=== PATIENT | male | born 1945 | race Caucasian/White ===

== ENCOUNTER 2019-10-26 18:34 | Emergency (ER) | payer MEDICARE, BC ==
[2019-10-26] MEDS: Lidocaine 1% 30 ML SDV INJECT ONE (18:57)
[2019-10-26] MEDS: Diphtheria,Pertussis(Acell),Tetanus Vaccine 0.5 ML Syringe IM ONE (19:25)
--- NOTE | 2019-10-26 19:26 | EDM.PDOC ---
ED HPI GENERAL MEDICAL PROBLEM - General Chief Complaint: Laceration Stated Complaint: CUT THUMB WITH SAW Time Seen by Provider: 10/26/19 19:02 Source of Information: Reports: Patient History Limitations: Reports: No Limitations - History of Present Illness INITIAL COMMENTS - FREE TEXT/NARRATIVE: The patient comes to the ED with complaints of injury to the left thumb. 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 Unsure of when his last tetanus shot was. No other injuries no change in sensation. Left Finger-Thumb Pain Score (Numeric/FACES): 4 - Related Data Allergies Allergy/AdvReac Type Severity Reaction Status Date / Time No Known Allergies Allergy Verified 10/26/19 18:44 Home Meds: Home Meds Diclofenac Sodium [Voltaren] 75 mg PO BIDMEALS 10/26/19 [History] Simvastatin [Zocor] 20 mg PO BEDTIME 10/26/19 [History] Past Medical History Cardiovascular History: Reports: High Cholesterol Musculoskeletal History: Reports: Arthritis Social & Family History - Tobacco Use Smoking Status *Q: Never Smoker ED ROS GENERAL - Review of Systems Review Of Systems: Comprehensive ROS is negative, except as noted in HPI. ED EXAM, SKIN/RASH Exam: See Below Exam Limited By: No Limitations General Appearance: Alert, WD/WN, No Apparent Distress Respiratory/Chest: No Respiratory Distress Cardiovascular: Normal Peripheral Pulses, Regular Rate, Rhythm Peripheral Pulses: 1+: Radial (L), Radial (R) Extremities: No: Normal Inspection (ON the very distal tip of the left thumb the patient has a transverse jagged laceration into the subcutaneous tissue. with some devascularized tissue as well. Does not extend into the nail or the matrix. It is aprox 2cm in length. The patient is able to flex and extend at the IP joint and the MCP joint. CMS intact appropriately. ) Neurological: Alert, Oriented, Normal Cognition, Normal Reflexes Skin: Warm, Dry, Intact Lymphatic: No Adenopathy ED SKIN PROCEDURES - Laceration/Wound Repair Left Distal Digit - 1st (Thumb) Appearance: Subcutaneous, Irregular, Clean Distal NVT: Neuro & Vascular Intact Anesthetic Type: Local Local Anesthesia - Lidocaine (Xylocaine): 1% Plain Local Anesthetic Volume: 4cc Skin Prep: Chlorhexidine (Hibiciens) Exploration/Debridement/Repair: Wound Explored, In a Bloodless Field, Explored to Base, No Foreign Material Found, Multiple Flaps Aligned Closed with: Sutures Lac/Wound length In cm: 2 Suture Size: 4-0 Suture Type: Nylon # of Sutures: 5 Sterile Dressing Applied: Nurse Tetanus Status Addressed: Yes Complications: No Course - Vital Signs Last Recorded V/S: Last Vital Signs Temp 37.3 C 10/26/19 18:35 Pulse 75 10/26/19 18:35 Resp 16 10/26/19 18:35 BP 177/103 H 10/26/19 18:35 Pulse Ox 100 10/26/19 18:35 - Orders/Labs/Meds Orders: Active Orders 24 hr Category Date Time Status Vaccines to be Administered [RC] PER UNIT ROUTINE Care 10/26/19 19:01 Active Meds: Medications Discontinued Medications Generic Name Dose Route Start Last Admin Trade Name Freq PRN Reason Stop Dose Admin Diphtheria/Tetanus/Acell Pertussis 0.5 ml 10/26/19 19:01 Adacel IM 10/26/19 19:02 .ONCE ONE Lidocaine HCl 30 ml 10/26/19 18:44 10/26/19 18:57 Xylocaine-Mpf 1% INJECT 10/26/19 18:45 30 ml ONETIME ONE Administration - Re-Assessments/Exams Free Text/Narrative Re-Assessment/Exam: 10/26/19 19:30 The hand was cleanse with chlorhexidine and soaked. Tdap updated. Well approximated the finger except for the medial aspect where a bit of tissue was avulsed aprox 90% was well approximated. Departure - Departure Time of Disposition: 19:22 Disposition: Home, Self-Care 01 Clinical Impression: Laceration of thumb Qualifiers: Encounter type: initial encounter Damage to nail status: without damage Foreign body presence: without foreign body Laterality: left Qualified Code(s): S61.012A - Laceration without foreign body of left thumb without damage to nail , initial encounter - Discharge Information Instructions: Laceration Care, Adult, [id number], Sutured Wound Care, Easy-to -Read Additional Instructions: Cleanse the wound twice daily with soap and water. Bacitracin bandage until healed. Watch for signs of infection. Sutures out in 10 days. Return to the ED if new or worsening symptoms. Sepsis Event Note - Evaluation Sepsis Screening Result: No Definite Risk - Focused Exam Vital Signs: Vital Signs Temp Pulse Resp BP Pulse Ox 10/26/19 18:35 37.3 C 75 16 177/103 H 100 Date Exam was Performed: 10/26/19 Time Exam was Performed: 19:21 - Assessment/Plan Assessment:: Laceration avulsion to the tip of the left thumb sutured. Plan: Cleanse the wound twice daily with soap and water. Bacitracin bandage until healed. Watch for signs of infection. Sutures out in 10 days. Return to the ED if new or worsening symptoms.
== END 2019-10-26 19:30 | disposition home or self-care (01) ==
LOC: VM.ED 18:34
DX: S61.012A Laceration without foreign body of left thumb without damage to nail, initial encounter (principal); E78.00 Pure hypercholesterolemia, unspecified; M19.90 Unspecified osteoarthritis, unspecified site; Z23 Encounter for immunization; Z79.899 Other long term (current) drug therapy; W27.0XXA Contact with workbench tool, initial encounter
CPT/HCPCS: 12001; 90471; 90715; 99282; 99283-GF; J2001